=== PATIENT | male | born 1950 | race Caucasian/White ===

== ENCOUNTER → 2016-09-24 | Outpatient (CLI) | payer MEDICARE, OTHER ==
[~2016-09-24] MED LIST: ASPI81TA2 PO; CELE50CA PO; LEVO25TA2 PO; OMEP2.5S PO; TAMS0.4C2 PO
[2016-09-24 11:18] LABS: BASO % 1 % (0-3); EOS # 0.2 x10^3/uL (0.0-0.7); EOS % 4 % (0-3); HEMATOCRIT 50.2 % (39.0-53.0); HEMOGLOBIN 16.5 g/dL (13.0-17.5); LYMPH # 1.8 x10^3/uL (1.0-4.8); LYMPH % 28 % (24-48); MEAN CORPUSCULAR HEMOGLOBIN 32 pg (25-35); MEAN CORPUSCULAR HGB CONC 33 g/dL (31-37); MEAN CORPUSCULAR VOLUME 98 fL (79-100); MONO # 0.6 x10^3/uL (0.0-1.1); MONO % 10 % (0-9); NEUT # 3.9 x10^3uL (1.8-7.7); NEUT % 58 % (31-73); PLATELET COUNT 221 x10^3/uL (140-400); RED BLOOD COUNT 5.14 x10^6/uL (4.30-5.70); RED CELL DISTRIBUTION WIDTH 13.6 % (11.5-14.5); WHITE BLOOD COUNT 6.6 x10^3/uL (4.0-11.0)
[2016-09-24 11:32] LABS: ALBUMIN 3.6 g/dL (3.4-5.0); CALCIUM 8.8 mg/dL (8.5-10.1); CREATININE 1.1 mg/dL (0.7-1.3); GFR 66.6; POTASSIUM 4.4 mmol/L (3.5-5.1); TOTAL BILIRUBIN 0.6 mg/dL (0.2-1.0); TOTAL PROTEIN 7.3 g/dL (6.4-8.2)
[2016-09-24 11:38] LABS: COLOR,URINE YELLOW
[2016-09-24 11:39] LABS: BACTERIA,URINE 0 /HPF (0-FEW); BILIRUBIN,URINE NEG (NEG); CLARITY,URINE CLEAR; GLUCOSE,URINE NEG (NEG); NITRITE,URINE NEG (NEG); RBC,URINE OCC /HPF (0-2); UROBILINOGEN,URINE 0.2 mg/dL (0.2 mg/dL); WBC,URINE 0 /HPF (0-4)
[2016-09-24 11:40] LABS: SQUAMOUS EPITHELIAL CELL,UR OCC /LPF
--- NOTE | 2016-09-24 11:53 | EKG ---
[address] [address] Test Date: 2016-09-24 Test Time: 11:21:02 Pat Name: ILENE DAWSON Department: Room: Gender: M [employer] Tender: LATRICE : 1950 Requested By: SRINIVAS ARAYA Order Number: [id number] Reading MD: Luis Aldridge Measurements Intervals [place] Rate: 62 P: 46 MN: 160 QRS: -22 QRSD: 78 T: 38 QT: 372 QTc: 380 Interpretive Statements SINUS RHYTHM CONSISTENT WITH INFERIOR INFARCT PROBABLY OLD Electronically Signed On 09-25-2016 11:41:15 CDT by Luis Aldridge
--- NOTE | 2016-09-24 12:27 | RAD ---
Chest, 2 views, 09/24/2016: History: Preop evaluation for hemorrhoid surgery Comparison is made to a study from 05/29/2006. The heart size and pulmonary vascularity are normal. No pulmonary infiltrates are seen. There is no evidence of pleural fluid. There is a mild thoracic scoliosis with mild associated degenerative change. IMPRESSION: No acute cardiopulmonary abnormality is detected.
== END | disposition home or self-care (01) ==
LOC: LAB 10:39
PROVIDERS: ATTEND Specialist
DX: Z01.812 Encounter for preprocedural laboratory examination (principal); Z01.810 Encounter for preprocedural cardiovascular examination; Z01.811 Encounter for preprocedural respiratory examination
CPT/HCPCS: 36415; 71020; 80053; 81001; 85027; 93005

== ENCOUNTER → 2019-04-21 | Outpatient (CLI) | payer MEDICARE, OTHER ==
[~2019-04-21] MED LIST changes: +ASPI-630 PO; -ASPI81TA2 PO; +IOHEXOL 300 MG/ML 75 ML VIAL. IV ONE; +IOHEXOL 350 MG/ML 100 ML VIAL. IV ONE; -LEVO25TA2 PO; +LEVO25TA55 PO; -OMEP2.5S PO; +OMEP2.5S2 PO
--- NOTE | 2019-04-21 13:13 | RAD ---
Study: CT chest with contrast INDICATION: Right lower lobe pneumonia for 2 weeks. COMPARISON: None. TECHNIQUE: Helical CT imaging of the chest performed after the intravenous administration of 70 cc Omnipaque 300 contrast. FINDINGS: Vasculature: Tortuous but nonaneurysmal aorta. Scattered vascular calcifications most notable at the partially visualized left renal artery origin. Patent great vessel origins. Mild calcific coronary artery disease. No main pulmonary artery dilatation though note is made that the right heart chambers are prominent in size.. There is loss of opacification of the segmental pulmonary artery to the posterior right lower lobe as well as loss of opacification of the adjacent smaller pulmonary artery coursing towards the lateral aspect of the right lower lobe both of which are seen on image 70 series 4. Though the study is not performed for close evaluation of the pulmonary arterial tree this is most compatible with pulmonary emboli especially given the increased diameter of the pulmonary artery to the posterior right lower lobe relative to the contralateral side. Mediastinum/brant: No suspicious lymph nodes. No pericardial effusion. Unremarkable gastroesophageal junction. Lungs: Moderate sized right pleural effusion. Groundglass opacity at the base of the right lower lobe and surrounding atelectasis. Minimal left lower lung linear opacities. Mild emphysematous changes of the lungs. Neck/axilla/chest wall: Unremarkable thyroid and axilla. Upper abdomen: Probable partially visualized extrarenal pelvis on the left. Bones: Broad dextrocurvature of the thoracic spine. Scattered degenerative changes which are most notable at the partially evaluated C6-C7 level as well as at L1-L2. IMPRESSION: The study is not timed for close evaluation of the pulmonary arterial tree however there are findings highly suggestive of pulmonary emboli within the segmental vasculature to the posterior aspect of the right lower lobe. A groundglass opacity at the periphery of the inferior right lower lobe is concerning for a pulmonary infarct given its location within the distribution of the abnormal pulmonary arteries. Moderate-sized right pleural effusion with overlying volume loss. Mostly linear densities at the periphery of the left lung base could represent mild atelectasis though note is made that the pulmonary arteries to this region are not well evaluated due to motion artifact and bolus timing therefore pulmonary emboli to this region are not excluded. It is recommended that the patient undergo CT angiography of the chest to confirm as well as further evaluate the rest of the pulmonary arteries. FOR INTERNAL CODING PURPOSES RESULT CODE: (C) Significant findings were relayed to Dr. Zhang by telephone on 04/21/2019 at 1305 hours. Electronically signed by: CRISSY MCCRAY MD (04/21/2019 1:10 PM) [facility]
--- NOTE | 2019-04-21 14:30 | RAD ---
Chest CTA History: Abnormal chest CT, questionable pulmonary embolism Technique: After bolus of intravenous contrast, CT imaging was performed of the chest. Multiplanar reconstruction images to include MIP reconstruction images are submitted. Exposure: One or more of the following individualized dose reduction techniques were utilized for this examination: 1. Automated exposure control 2. Adjustment of the mA and/or kV according to patient size 3. Use of iterative reconstruction technique. Comparison: Chest CT earlier the same day Findings: There is segmentally occlusive right lower lobe pulmonary embolism. There is very small left lower lobe pulmonary embolism. There is again small right pleural effusion. There is right lower lobe density extending to the pleural surface peripheral to the embolism. Thoracic aortic caliber is within normal limits without intraluminal flap. There is no pericardial fluid or pneumothorax. There is centrilobular emphysema. There is mild somewhat groundglass infiltrate of the left lower lobe. There is moderate thoracic dextroscoliosis. Impression: 1. There is right lower lobe pulmonary embolism. There is very small left lower lobe pulmonary embolism. There is parenchymal density in the right lower lobe suspicious for pulmonary infarct. There is small right pleural effusion. Critical results were discussed with DAWN LYLE at 04/21/2019 2:23 PM. Electronically signed by: Santos Candelaria MD (04/21/2019 2:27 PM) [id number]
== END | disposition home or self-care (01) ==
LOC: CT 09:19
PROVIDERS: ATTEND Family Medicine
DX: J43.2 Centrilobular emphysema (principal); I26.99 Other pulmonary embolism without acute cor pulmonale; I25.10 Atherosclerotic heart disease of native coronary artery without angina pectoris; I70.1 Atherosclerosis of renal artery; J90 Pleural effusion, not elsewhere classified; J98.4 Other disorders of lung; J98.11 Atelectasis
CPT/HCPCS: 71260; 71275; Q9967

== ENCOUNTER → 2021-10-09 | Outpatient (CLI) | payer MEDICARE, OTHER ==
[~2021-10-09] MED LIST changes: -IOHEXOL 300 MG/ML 75 ML VIAL. IV ONE; +IOHEXOL 350 MG/ML 100 ML VIAL. ONE
--- NOTE | 2021-10-09 10:15 | CARD ---
MR#: [id number] Date of Study: 10/09/2021 Ordering Physician: DAWN LYLE, Referring Physician: DAWN LYLE, Tech: Eliot Celeste [facility] APPROVED REPORT EXAM: Two-dimensional and M-mode echocardiogram with Doppler and color Doppler. Other Information Quality : AverageHR: 46bpm Rhythm : Bradycardia INDICATION Dyspnea RISK FACTORS Smoking 2D DIMENSIONS Left Atrium(2D)4.8 (1.6-4.0cm)IVSd1.2 (0.7-1.1cm) Aortic Root(2D)3.5 (2.0-3.7cm)LVDd5.2 (3.9-5.9cm) LVOT Diameter2.1 (1.8-2.4cm)PWd1.1 (0.7-1.1cm) LA Nhmyqo46 (18-58mL)LVDs2.6 (2.5-4.0cm) FS (%) 49.5 %SV102.3 ml LVEF(%)80.5 (>50%) Aortic Valve AoV Peak Daniel.143.4cm/sAoV VTI34.0cm AO Peak GR.8.2mmHgLVOT Peak Daniel.121.5cm/s LVOT VTI 25.83cmAO Mean GR.4mmHg ALISTAIR (VMAX)3.58fk7UPD (VTI)2.74cm2 Mitral Valve MV E Gytgbmjx60.1cm/sMV E Peak Gr.3mmHg MV DECEL [id number] A Izrtqxts38.6cm/s MV E Mean Gr.1mmHgE/A Ratio1.5 Pulmonary Valve PV Peak Ywbobmcr184.5cm/sPV Peak Grad.4mmHg Tricuspid Valve TR P. Vvnkpxky504kc/sTR Peak Gr.30mmHg Pulmonary Vein S1 Ayyscqvh13.9cm/sD2 Ujqdxgvy12.0cm/s LEFT VENTRICLE The left ventricle is normal size. There is normal left ventricular wall thickness. The left ventricu lar systolic function is normal. The ejection fraction is 60-65%. There is normal LV segmental wall m otion. Transmitral Doppler flow pattern is Grade II-pseudonormal filling dynamics. No left ventricle thrombus noted on this study. There is no ventricular septal defect visualized. There is no left vent ricular aneurysm. There is no mass noted in the left ventricle. RIGHT VENTRICLE The right ventricle is normal size. There is normal right ventricular wall thickness. The right ventr icular systolic function is normal. ATRIA The left atrium is mildly dilated. The right atrium size is normal. The interatrial septum is intact with no evidence for an atrial septal defect or patent foramen ovale as noted on 2-D or Doppler imagi ng. AORTIC VALVE The aortic valve is normal in structure and function. Doppler and Color Flow revealed no significant aortic regurgitation. There is no significant aortic valvular stenosis. There is no aortic valvular v egetation. MITRAL VALVE The mitral valve is normal in structure and function. There is no evidence of mitral valve prolapse. There is no mitral valve stenosis. Doppler and Color-flow revealed trace mitral regurgitation. TRICUSPID VALVE The tricuspid valve is normal in structure and function. Doppler and Color Flow revealed trace tricus pid regurgitation. The PA pressure was estimated at 35 mmHg. There is no tricuspid valve prolapse or vegetation. There is no tricuspid valve stenosis. PULMONIC VALVE The pulmonary valve is normal in structure and function. Doppler and Color Flow revealed no pulmonic valvular regurgitation. There is no pulmonic valvular stenosis. GREAT VESSELS The aortic root is normal in size. The ascending aorta is normal in size. The pulmonary artery is nor mal. The IVC was not well visualized. PERICARDIAL EFFUSION There is no pleural effusion. There is no evidence of significant pericardial effusion. Critical Notification Critical Value: No <Conclusion> The left ventricular systolic function is normal. The ejection fraction is 60-65%. There is normal LV segmental wall motion. Trace tricuspid regurgitation. The PA pressure was estimated at 35 mmHg. There is no evidence of significant pericardial effusion. Signed by : Ricardo Álvarez, Electronically Approved : 10/09/2021 10:14:36
--- NOTE | 2021-10-09 10:17 | RAD ---
EXAMINATION: CTA CHEST CLINICAL HISTORY: DYSPNEA, H/O BLOOD CLOTS. Technique: Spiral CT acquisition of the chest from the thoracic inlet to the upper abdomen following IV contrast with coronal and sagittal reformatted images also provided for review. 3D maximum intensi ty projection images also performed. CT Dose Reduction Employed: One or more of the following individualized dose reduction techniques wer e utilized for this examination: 1. Automated exposure control 2. Adjustment of the mA and/or kV ac cording to patient size 3. Use of iterative reconstruction technique. COMPARISON: 04/21/2019 FINDINGS: Pulmonary Vasculature: No definitive evidence of main, lobar, or segmental pulmonary arterial thrombu s. Eccentric mildly decreased attenuation in the segmental branch of the posterior medial right lower lobe, nonspecific. This appears to be within the same vessel which contained thrombus in 2019, there fore the findings could be related to chronic thrombus and/or scarring. Alternatively, there is also respiratory motion at this level, so the findings could be at least in part artifactual. Lung Parenchyma, Pleura, and Airways: No focal consolidation. Mild bibasilar subsegmental atelectasis and/or scarring. Mild centrilobular and paraseptal emphysema, predominantly in the upper lobes. No p leural effusion. Central airways patent. Lower Neck, Lymph Nodes, and Mediastinum: Visualized thyroid gland within normal limits. No mediastin al, hilar, or axillary lymphadenopathy. Heart, Pericardium, and Thoracic Vessels: Cardiac chambers normal in size. No pericardial effusion. M inimal aortic atherosclerotic calcification without aneurysm. Mild coronary atherosclerotic calcifica tion, incompletely evaluated. Bones and Soft Tissues: Multilevel degenerative changes and mild dextroconvex curvature in the thorac ic spine. Upper Abdomen: Partially visualized upper abdomen unremarkable. IMPRESSION: No definitive evidence of acute main, lobar, or segmental pulmonary embolism. Findings suggestive of residual chronic thrombus and/or scarring in a segmental branch of the posteri or medial right lower lobe as described. Mild emphysema. Electronically signed by: Avery Fajardo DO (10/09/2021 10:14 AM) [facility]
== END ==
LOC: ECHO 07:42
PROVIDERS: ATTEND Family Medicine
DX: J43.2 Centrilobular emphysema (principal); I25.10 Atherosclerotic heart disease of native coronary artery without angina pectoris; M47.814 Spondylosis without myelopathy or radiculopathy, thoracic region; M43.8X4 Other specified deforming dorsopathies, thoracic region; R06.00 Dyspnea, unspecified; I26.99 Other pulmonary embolism without acute cor pulmonale
CPT/HCPCS: 71275; 93306; Q9967

== ENCOUNTER → 2021-10-18 | Outpatient (CLI) | payer MEDICARE, OTHER ==
[~2021-10-18] MED LIST changes: -IOHEXOL 350 MG/ML 100 ML VIAL. IV ONE; -IOHEXOL 350 MG/ML 100 ML VIAL. ONE
--- NOTE | 2021-10-18 10:29 | RAD ---
US BILATERAL LOWER-EXTREMITY VENOUS DOPPLER History: , , Reason: HX OF PE / Spl. Instructions: / History: Procedure: Realtime grayscale B-mode 2D sonographic images of the superficial and deep veins of both legs were performed with color flow, and spectral waveform analysis Doppler imaging. Findings: This demonstrates good compressibility where possible. Appropriate phasicity and augmentation witho ut evidence of intraluminal thrombus. Impression: No evidence of DVT. Electronically signed by: Frantz Brown MD (10/18/2021 10:26 AM) [id number]
== END ==
LOC: US 09:14
PROVIDERS: ATTEND Family Medicine
DX: I26.99 Other pulmonary embolism without acute cor pulmonale (principal)
CPT/HCPCS: 93970

== ENCOUNTER → 2021-10-23 | Outpatient (CLI) | payer MEDICARE, OTHER ==
--- NOTE | 2021-10-23 16:30 | RAD ---
XR CHEST 2V History: Short of breath Comparison: CT 10/09/2021 Technique: PA and lateral chest radiographs. Findings: The lungs are adequately and symmectrically inflated. No airspace consolidation, pleural effusion or pneumothorax. The cardiomediastinal silhoutte and pulmonary vasculature are within normal limits. Dex troconvex curvature in the midthoracic spine. Impression: 1. No acute cardiopulmonary process. Electronically signed by: Velasquez Acosta MD (10/23/2021 4:28 PM) [id number]
--- NOTE | 2021-10-23 16:34 | RAD ---
NUCLEAR MEDICINE VENTILATION PERFUSION SCAN History: Shortness of air Comparison: CTA chest 10/09/2021, 04/21/2019 Technique: Patient ventilated 23 mCi xenon-133. Perfusion portion performed after intravenous adminis tration of 5.5 mCi Technetium 99m MAA. Multiple projection planar images of the lungs were obtained. Findings: The ventilation images are homogeneous. Perfusion images demonstrate no perfusion defects. IMPRESSION: Normal VQ scan. Negative for pulmonary embolism. Electronically signed by: Velasquez Acosta MD (10/23/2021 4:32 PM) [id number]
== END ==
LOC: DXRAD 11:24
PROVIDERS: ATTEND Family Medicine
DX: I26.99 Other pulmonary embolism without acute cor pulmonale (principal); M43.8X4 Other specified deforming dorsopathies, thoracic region
CPT/HCPCS: 71046; 78582; A9540; A9558